=== PATIENT | female | born 1960 | race Caucasian/White ===

== ENCOUNTER 2020-07-09 08:42 | Outpatient (REF) | payer OTHER, SELFPAY ==
[2020-07-09 09:25] LABS: MANUAL DIFF FLAG NO
[2020-07-09 09:33] LABS: Basophils Percent Auto 0.5 % (0-2); Eosinophils Absolute Auto 0.1 X10*3/uL (0.0-0.4); Eosinophils Percent Auto 0.9 % (0-4); Hematocrit 39.3 % (37-47); Imm Gran Abs Auto 0.03 X10*3/uL (0.00-0.03); Imm Gran Pct Auto 0.4 % (0.0-0.4); Lymphocytes Absolute Auto 1.4 X10*3/uL (1.2-4.9); Lymphocytes Percent Auto 15.8 % (20-40); Mean Corpuscular HGB Conc 33.1 g/dl (31.0-35.0); Mean Corpuscular Hemoglobin 30.2 pg (27.0-33.0); Mean Corpuscular Volume 91.2 fL (80-98); Mean Platelet Volume 11.5 fL (9.4-12.3); Monocytes Absolute Auto 0.5 X10*3/uL (0.1-1.2); Monocytes Percent Auto 6.3 % (2-11); Neutrophils Absolute Auto 6.5 X10*3/uL (2.0-8.3); Neutrophils Percent Auto 76.1 % (45-73); Platelet Count 247 X10*3/uL (160-400); Red Blood Count 4.31 X10*6/uL (4.20-5.50); Red Cell Distribution Width 12.9 % (11.0-16.0); White Blood Count 8.5 X10*3/uL (4.8-10.8)
[2020-07-09 09:56] LABS: Alanine Aminotransferase 30 U/L (0-31); Albumin Level 4.1 g/dL (3.5-5.0); Alkaline Phosphatase 79 U/L (39-117); Anion Gap 11 (12-20); Aspartate Amino Transferase 21 U/L (5-31); Bilirubin Total 0.9 mg/dL (0.0-1.0); Blood Urea Nitrogen 22 mg/dL (9-16); Calcium 9.1 mg/dL (8.4-10.2); Carbon Dioxide 31 mmol/L (22-29); Chloride 103 mmol/L (96-108); Cholesterol 164 mg/dL; Estimated Glomerular Filt Rate > 60; Glucose Fasting 89 mg/dL (60-99); HDL Cholesterol 53 mg/dL; LDL Cholesterol Calculated 93 mg/dl; Sodium 141 mmol/L (135-145); Triglycerides 90 mg/dL
[2020-07-09 10:19] LABS: Thyroid Stimulating Hormone 8.83 uIU/mL (0.32-4.0)
== END 2020-07-09 08:43 | disposition home or self-care (01) ==
LOC: HO.LAB 08:42
PROVIDERS: PCP Internal Medicine; Visit Provider Internal Medicine
DX: E03.8 Other specified hypothyroidism (principal); L23.0 Allergic contact dermatitis due to metals
CPT/HCPCS: 36415; 80053; 80061; 84443; 85025

== ENCOUNTER 2020-08-03 13:13 | Outpatient (REF) | payer OTHER, SELFPAY ==
--- NOTE | ~2020-08-03 | MM_ITS ---
EXAMINATION: MM SCREENING DIGITAL BREAST TOMOSYNTHESIS, BILATERAL CLINICAL INFORMATION: Screening. Asymptomatic. The lifetime risk of breast cancer based on the Tyrer-Cuzick Model is 4.1%. COMPARISON: Mammography: December 19, 2018 and studies dating back to September 03, 2009 TECHNIQUE: Digital breast tomosynthesis is performed in both the craniocaudal and mediolateral oblique views along with computer-aided detection (CAD). Synthesized 2D images are generated from the tomosynthesis. FINDINGS: There are scattered areas of fibroglandular density (ACR BI-RADS breast composition Category b). There are no significant masses, abnormal calcifications, or other abnormalities. MM/MM tomosynthesis screening BI IMPRESSION: There are no significant changes from prior study. ASSESSMENT: BI-RADS 1: Negative RECOMMENDATION: Routine annual mammography screening. This patient's information was entered into a reminder system with a target due date for their next mammogram.
== END 2020-08-03 13:14 | disposition home or self-care (01) ==
LOC: HO.MAMMO 13:13
PROVIDERS: Visit Provider Internal Medicine
DX: Z12.31 Encounter for screening mammogram for malignant neoplasm of breast (principal)
CPT/HCPCS: 77063; 77067

== ENCOUNTER 2020-10-01 08:50 | Outpatient (REF) | payer OTHER, SELFPAY ==
[2020-10-01 10:07] LABS: Thyroid Stimulating Hormone 7.32 uIU/mL (0.32-4.0)
== END 2020-10-01 08:51 | disposition home or self-care (01) ==
LOC: HO.LAB 08:50
PROVIDERS: PCP Internal Medicine; Visit Provider Internal Medicine
DX: Z00.00 Encounter for general adult medical examination without abnormal findings (principal); E78.00 Pure hypercholesterolemia, unspecified; E89.0 Postprocedural hypothyroidism; G47.33 Obstructive sleep apnea (adult) (pediatric)
CPT/HCPCS: 36415; 84443

== ENCOUNTER 2021-02-10 12:35 | Outpatient (REF) | payer OTHER, SELFPAY ==
[2021-02-10 14:11] LABS: Thyroid Stimulating Hormone 1.49 uIU/mL (0.32-4.0)
== END 2021-02-10 12:36 | disposition home or self-care (01) ==
LOC: HO.LAB 12:35
PROVIDERS: PCP Internal Medicine; Visit Provider Internal Medicine
DX: E89.0 Postprocedural hypothyroidism (principal); G47.33 Obstructive sleep apnea (adult) (pediatric)
CPT/HCPCS: 36415; 84443

== ENCOUNTER 2021-07-17 08:37 | Outpatient (REF) | payer OTHER, SELFPAY ==
[2021-07-17 09:02] LABS: MANUAL DIFF FLAG NO
[2021-07-17 09:26] LABS: Basophils Percent Auto 0.4 % (0-2); Eosinophils Absolute Auto 0.1 X10*3/uL (0.0-0.4); Eosinophils Percent Auto 2.4 % (0-4); Hematocrit 37.2 % (37.0-47.0); Imm Gran Abs Auto 0.01 X10*3/uL (0.00-0.03); Imm Gran Pct Auto 0.2 % (0.0-0.4); Lymphocytes Absolute Auto 1.6 X10*3/uL (1.2-4.9); Lymphocytes Percent Auto 30.4 % (20-40); Mean Corpuscular HGB Conc 32.3 g/dl (31.0-35.0); Mean Corpuscular Hemoglobin 29.3 pg (27.0-33.0); Mean Corpuscular Volume 90.7 fL (80.0-98.0); Mean Platelet Volume 11.1 fL (9.4-12.3); Monocytes Absolute Auto 0.5 X10*3/uL (0.1-1.2); Neutrophils Absolute Auto 2.9 x10*3/uL (2.0-8.3); Neutrophils Percent Auto 57.6 % (45-73); Platelet Count 240 X10*3/uL (160-400); Red Cell Distribution Width 12.9 % (11.0-16.0); White Blood Count 5.1 X10*3/uL (4.8-10.8)
[2021-07-17 09:49] LABS: Alanine Aminotransferase 17 U/L (0-31); Albumin Level 3.7 g/dL (3.5-5.0); Alkaline Phosphatase 71 U/L (39-117); Anion Gap 10 (12-20); Aspartate Amino Transferase 15 U/L (5-31); Bilirubin Total 0.3 mg/dL (0.0-1.0); Blood Urea Nitrogen 18 mg/dL (9-16); Calcium 9.1 mg/dL (8.4-10.2); Carbon Dioxide 29 mmol/L (22-29); Chloride 108 mmol/L (96-108); Cholesterol 170 mg/dL; Estimated Glomerular Filt Rate > 60; Glucose Random 99 mg/dL (60-115); HDL Cholesterol 47 mg/dL; LDL Cholesterol Calculated 102 mg/dl; Potassium 4.4 mmol/L (3.3-5.1); Sodium 143 mmol/L (135-145); Total Protein 6.5 g/dL (6.5-8.0); Triglycerides 108 mg/dL
[2021-07-17 10:11] LABS: Thyroid Stimulating Hormone 1.04 uIU/mL (0.32-4.0)
== END 2021-07-17 08:38 | disposition home or self-care (01) ==
LOC: HO.LAB 08:37
PROVIDERS: PCP Internal Medicine; Visit Provider Internal Medicine
DX: E78.00 Pure hypercholesterolemia, unspecified (principal); E89.0 Postprocedural hypothyroidism; G47.33 Obstructive sleep apnea (adult) (pediatric); M77.12 Lateral epicondylitis, left elbow; M77.02 Medial epicondylitis, left elbow; R35.1 Nocturia; R53.83 Other fatigue
CPT/HCPCS: 36415; 80053; 80061; 84443; 85025

== ENCOUNTER 2021-09-09 09:30 | Outpatient (REF) | payer OTHER, SELFPAY ==
--- NOTE | ~2021-09-09 | MM_ITS ---
EXAMINATION: MM SCREENING DIGITAL BREAST TOMOSYNTHESIS, BILATERAL CLINICAL INFORMATION: Screening. Asymptomatic. The lifetime risk of breast cancer based on the Tyrer-Cuzick Model is 4%. COMPARISON: Mammography: 08/03/2020, 12/19/2018, 09/07/2017 TECHNIQUE: Digital breast tomosynthesis is performed in both the craniocaudal and mediolateral oblique views along with computer-aided detection (CAD). Synthesized 2D images are generated from the tomosynthesis. FINDINGS: There are scattered areas of fibroglandular density (ACR BI-RADS breast composition Category b). Breast tissue composition borders on heterogeneously dense. There is a biopsy clip marker again noted central 12:00 mid right breast. There is no interval mass or architectural abnormality or abnormal calcifications. The axilla and skin contours are unremarkable. MM/MM tomosynthesis screening BI IMPRESSION: No mammographic evidence of malignancy. ASSESSMENT: BI-RADS 2: Benign RECOMMENDATION: Routine annual mammography screening. This patient's information was entered into a reminder system with a target due date for their next mammogram.
== END 2021-09-09 09:31 | disposition home or self-care (01) ==
LOC: HO.MAMMO 09:30
PROVIDERS: Visit Provider Internal Medicine
DX: Z12.31 Encounter for screening mammogram for malignant neoplasm of breast (principal)
CPT/HCPCS: 77063; 77067

== ENCOUNTER 2022-01-08 07:40 | Outpatient (REF) | payer OTHER, SELFPAY ==
[2022-01-08 09:06] LABS: Alanine Aminotransferase 21 U/L (0-31); Alkaline Phosphatase 71 U/L (39-117); Anion Gap 13 (12-20); Aspartate Amino Transferase 14 U/L (5-31); Bilirubin Total 0.5 mg/dL (0.0-1.0); Blood Urea Nitrogen 21 mg/dL (9-16); Carbon Dioxide 27 mmol/L (22-29); Chloride 104 mmol/L (96-108); Estimated Glomerular Filt Rate > 60; Glucose Random 94 mg/dL (60-115); Potassium 4.3 mmol/L (3.3-5.1); Sodium 140 mmol/L (135-145)
[2022-01-08 09:27] LABS: Thyroid Stimulating Hormone 1.72 uIU/mL (0.32-4.0)
== END 2022-01-08 07:41 | disposition home or self-care (01) ==
LOC: HO.LAB 07:40
PROVIDERS: PCP Internal Medicine; Visit Provider Internal Medicine
DX: Z00.00 Encounter for general adult medical examination without abnormal findings (principal); E78.00 Pure hypercholesterolemia, unspecified; E89.0 Postprocedural hypothyroidism; I10 Essential (primary) hypertension
CPT/HCPCS: 36415; 80053; 84443

== ENCOUNTER 2022-09-11 09:37 | Outpatient (REF) | payer OTHER, SELFPAY ==
[2022-09-11 10:22] LABS: MANUAL DIFF FLAG NO
[2022-09-11 10:30] LABS: Basophils Absolute Auto 0.1 X10*3/uL (0.0-0.2); Basophils Percent Auto 0.5 % (0-2); Eosinophils Absolute Auto 0.1 X10*3/uL (0.0-0.4); Eosinophils Percent Auto 0.7 % (0-4); Hematocrit 41.6 % (37.0-47.0); Hemoglobin 13.7 g/dl (12.0-16.0); Imm Gran Abs Auto 0.18 X10*3/uL (0.00-0.03); Imm Gran Pct Auto 1.4 % (0.0-0.4); Lymphocytes Absolute Auto 4.6 X10*3/uL (1.2-4.9); Lymphocytes Percent Auto 34.7 % (20-40); Mean Corpuscular HGB Conc 32.9 g/dl (31.0-35.0); Mean Corpuscular Hemoglobin 29.2 pg (27.0-33.0); Mean Corpuscular Volume 88.7 fL (80.0-98.0); Mean Platelet Volume 11.3 fL (9.4-12.3); Monocytes Absolute Auto 0.9 X10*3/uL (0.1-1.2); Monocytes Percent Auto 6.6 % (2-11); Neutrophils Absolute Auto 7.5 x10*3/uL (2.0-8.3); Neutrophils Percent Auto 56.1 % (45-73); Platelet Count 294 X10*3/uL (160-400); Red Blood Count 4.69 X10*6/uL (4.20-5.50); Red Cell Distribution Width 13.4 % (11.0-16.0); White Blood Count 13.3 X10*3/uL (4.8-10.8)
[2022-09-11 11:13] LABS: Alanine Aminotransferase 29 U/L (0-31); Albumin Level 4.1 g/dL (3.5-5.0); Alkaline Phosphatase 68 U/L (39-117); Anion Gap 12 (12-20); Aspartate Amino Transferase 16 U/L (5-31); Bilirubin Total 0.6 mg/dL (0.0-1.0); Blood Urea Nitrogen 25 mg/dL (9-16); Calcium 9.3 mg/dL (8.4-10.2); Carbon Dioxide 30 mmol/L (22-29); Chloride 105 mmol/L (96-108); Cholesterol 255 mg/dL; Estimated Glomerular Filt Rate > 60; Glucose Fasting 82 mg/dL (60-99); HDL Cholesterol 56 mg/dL; LDL Cholesterol Calculated 175 mg/dl; Potassium 3.6 mmol/L (3.3-5.1); Sodium 143 mmol/L (135-145); Total Protein 6.8 g/dL (6.5-8.0); Triglycerides 120 mg/dL
[2022-09-11 11:30] LABS: Thyroid Stimulating Hormone 7.59 uIU/mL (0.32-4.0)
== END 2022-09-11 09:38 | disposition home or self-care (01) ==
LOC: HO.10HDL 09:37
PROVIDERS: Visit Provider Internal Medicine
DX: E78.00 Pure hypercholesterolemia, unspecified (principal); E89.0 Postprocedural hypothyroidism; J02.9 Acute pharyngitis, unspecified; J30.89 Other allergic rhinitis
CPT/HCPCS: 36415; 80053; 80061; 84443; 85025

== ENCOUNTER 2022-10-20 10:11 | Outpatient (REF) | payer OTHER, SELFPAY ==
--- NOTE | ~2022-10-20 | MM_ITS ---
EXAMINATION: MM SCREENING DIGITAL BREAST TOMOSYNTHESIS, BILATERAL CLINICAL INFORMATION: Screening. Asymptomatic. Right breast biopsy 2008 (fibrosis, apocrine microcysts, florid sclerosing adenosis with numerous microcalcifications). The lifetime risk of breast cancer based on the Tyrer-Cuzick Model is 4%. COMPARISON: Mammography: 09/09/2021, 08/03/2020, 12/19/2018, 09/07/2017, 08/11/2016, 06/25/2015 TECHNIQUE: Digital breast tomosynthesis is performed in both the craniocaudal and mediolateral oblique views along with computer-aided detection (CAD). Synthesized 2D images are generated from the tomosynthesis. FINDINGS: There are scattered areas of fibroglandular density (ACR BI-RADS breast composition Category b). Breast tissue composition borders on heterogeneously dense. Right breast parenchymal pattern is similar to prior exams. There is no developing density or architectural abnormality. Again, there is a biopsy clip marker mid 12:00 position. Scattered calcifications are again seen. No suspicious calcifications in either breast. The bilateral axilla are unremarkable. Left CC view has asymmetric density just medial to midline 3 cm from nipple, possibly incompletely compressed glandular tissue and/or summation artifact. Patient will be recalled for additional imaging to further characterize. MM/MM tomosynthesis screening BI IMPRESSION: Left: -Asymmetric density 3 cm from nipple on CC view just medial to midline, possibly incompletely compressed glandular tissue and/or summation artifact. Right: -No significant changes from prior exams. ASSESSMENT: BI-RADS 0: Incomplete - Need Additional Imaging Evaluation RECOMMENDATION: 1. Additional views left breast (spot CC nipple in profile; ML). 2. Targeted ultrasound if warranted after review of the additional views. 3. Radiology department staff will contact the patient for additional imaging. This patient's information was entered into a reminder system with a target due date for their next mammogram.
== END 2022-10-20 10:12 | disposition home or self-care (01) ==
LOC: HO.MAMMO 10:11
PROVIDERS: PCP Internal Medicine; Visit Provider Internal Medicine
DX: Z12.31 Encounter for screening mammogram for malignant neoplasm of breast (principal)
CPT/HCPCS: 77063; 77067

== ENCOUNTER 2022-11-06 10:30 | Outpatient (REF) | payer OTHER, SELFPAY ==
--- NOTE | ~2022-11-06 | MM_ITS ---
EXAMINATION: MM DIAGNOSTIC DIGITAL BREAST TOMOSYNTHESIS, LEFT CLINICAL INFORMATION: Recall from screening for question of asymmetric density just medial to midline anterior left breast on CC view. Suspect summation artifact or incompletely compressed glandular tissue. COMPARISON: Mammography: 10/20/2022, 09/09/2021, 08/03/2020, 12/19/2018 TECHNIQUE: Digital breast tomosynthesis is performed. 2D images are generated from the tomosynthesis. The following views are obtained: Spot CC, spot MLO, rolled CC x2, standard ML. FINDINGS: There are scattered areas of fibroglandular density (ACR BI-RADS breast composition Category b). Breast tissue composition borders on heterogeneously dense. The additional views show no architectural abnormality, mass, or developing density. There are no significant changes from prior exams. Results are discussed with the patient at time of visit. MM/MM tomosynthesis added views L IMPRESSION: No mammographic evidence of malignancy. ASSESSMENT: BI-RADS 1: Negative RECOMMENDATION: Routine annual mammography screening. This patient's information was entered into a reminder system with a target due date for their next mammogram.
== END 2022-11-06 10:31 | disposition home or self-care (01) ==
LOC: HO.MAMMO 10:30
PROVIDERS: PCP Internal Medicine; Visit Provider Internal Medicine
DX: R92.2 Inconclusive mammogram (principal)
CPT/HCPCS: 77061; 77065

== ENCOUNTER 2022-12-06 12:21 | Outpatient (REF) | payer OTHER, SELFPAY ==
--- NOTE | ~2022-12-06 | XR_ITS ---
EXAMINATION: XR ABDOMEN COMPLETE CLINICAL INDICATION: Abdominal pain with chest radiograph. COMPARISON: None available. TECHNIQUE: Supine and upright views of the abdomen were performed along with a single PA chest radiograph of the abdomen. FINDINGS: The chest radiograph is normal. There is no free intraperitoneal air. The abdominal bowel gas pattern is normal with no evidence of ileus or obstruction. No unusual soft tissue calcifications are noted. Surgical clips are present in the left lower quadrant. The bones are unremarkable. XR/XR acute abdomen series IMPRESSION: Unremarkable examination.
[2022-12-06 12:49] LABS: MANUAL DIFF FLAG NO
[2022-12-06 13:42] LABS: Basophils Absolute Auto 0.1 X10*3/uL (0.0-0.2); Basophils Percent Auto 0.8 % (0-2); Eosinophils Absolute Auto 0.1 X10*3/uL (0.0-0.4); Eosinophils Percent Auto 2.3 % (0-4); Hematocrit 38.1 % (37.0-47.0); Hemoglobin 12.6 g/dl (12.0-16.0); Imm Gran Abs Auto 0.02 X10*3/uL (0.00-0.03); Imm Gran Pct Auto 0.3 % (0.0-0.4); Lymphocytes Absolute Auto 1.8 X10*3/uL (1.2-4.9); Lymphocytes Percent Auto 29.5 % (20-40); Mean Corpuscular HGB Conc 33.1 g/dl (31.0-35.0); Mean Corpuscular Hemoglobin 29.9 pg (27.0-33.0); Mean Corpuscular Volume 90.3 fL (80.0-98.0); Mean Platelet Volume 12.1 fL (9.4-12.3); Monocytes Absolute Auto 0.5 X10*3/uL (0.1-1.2); Neutrophils Absolute Auto 3.5 x10*3/uL (2.0-8.3); Neutrophils Percent Auto 59.1 % (45-73); Platelet Count 260 X10*3/uL (160-400); Red Blood Count 4.22 X10*6/uL (4.20-5.50); Red Cell Distribution Width 12.9 % (11.0-16.0)
[2022-12-06 14:15] LABS: Alanine Aminotransferase 26 U/L (0-31); Albumin Level 3.7 g/dL (3.5-5.0); Alkaline Phosphatase 79 U/L (39-117); Amylase 73 U/L (28-100); Aspartate Amino Transferase 24 U/L (5-31); Bilirubin Direct 0.1 mg/dL (0.0-0.5); Bilirubin Total 0.5 mg/dL (0.0-1.0); C Reactive Protein 0.37 mg/dL (< or = 0.50); Lipase 14 U/L (8-78)
[2022-12-06 14:43] LABS: Erythrocyte Sedimentation Rate 34 MM/HR (0-20)
== END 2022-12-06 12:22 | disposition home or self-care (01) ==
LOC: HO.LAB 12:21
PROVIDERS: PCP Internal Medicine; Visit Provider Internal Medicine
DX: R10.84 Generalized abdominal pain (principal); R19.7 Diarrhea, unspecified; R11.10 Vomiting, unspecified
CPT/HCPCS: 36415; 74022; 80076; 82150; 83690; 85025; 85652; 86140

== ENCOUNTER 2022-12-10 08:44 | Outpatient (REF) | payer OTHER, SELFPAY ==
[2022-12-10 15:53] LABS: Leukocytes Stool Qualitative NEGATIVE (NEGATIVE)
[2022-12-11 12:19] LABS: Adenovirus F 40/41 Not Detected (Not Detect.); Astrovirus Not Detected (Not Detect.); Campylobacter Not Detected (Not Detect.); Cryptosporidium Not Detected (Not Detect.); Cyclospora cayetanensis Not Detected (Not Detect.); E. coli EAEC Not Detected (Not Detect.); E. coli EPEC Not Detected (Not Detect.); E. coli ETEC Not Detected (Not Detect.); E. coli STEC Not Detected (Not Detect.); Entamoeba histolytica Not Detected (Not Detect.); Giardia lamblia Not Detected (Not Detect.); Norovirus GI/GII Not Detected (Not Detect.); Plesiomonas shigelloides Not Detected (Not Detect.); Rotavirus A Not Detected (Not Detect.); Salmonella Not Detected (Not Detect.); Sapovirus Not Detected (Not Detect.); Shigella sp./EIEC Not Detected (Not Detect.); Vibrio Not Detected (Not Detect.); Vibrio Cholerae Not Detected (Not Detect.); Yersinia enterocolitica Not Detected (Not Detect.)
== END 2022-12-10 08:45 | disposition home or self-care (01) ==
LOC: HO.CHCLNP 08:44
PROVIDERS: Visit Provider Internal Medicine
DX: R10.84 Generalized abdominal pain (principal); R19.7 Diarrhea, unspecified
CPT/HCPCS: 87493; 87507; 89055

== ENCOUNTER 2022-12-12 09:16 | Outpatient (REF) | payer OTHER, SELFPAY ==
[2022-12-12 15:43] LABS: Cholesterol 147 mg/dL; HDL Cholesterol 47 mg/dL; LDL Cholesterol Calculated 82 mg/dl; Triglycerides 90 mg/dL
[2022-12-12 15:49] LABS: Thyroid Stimulating Hormone 1.95 uIU/mL (0.32-4.0)
== END 2022-12-12 09:17 | disposition home or self-care (01) ==
LOC: HO.CHCLDS 09:16
PROVIDERS: Visit Provider Internal Medicine
DX: Z00.01 Encounter for general adult medical examination with abnormal findings (principal); E78.00 Pure hypercholesterolemia, unspecified; E89.0 Postprocedural hypothyroidism; J45.909 Unspecified asthma, uncomplicated
CPT/HCPCS: 36415; 80061; 84443

== ENCOUNTER 2023-06-18 09:22 | Outpatient (REF) | payer OTHER, SELFPAY | END 2023-06-18 09:23 | disposition home or self-care (01) | LOC: HO.CHCLDS 09:22 | PROVIDERS: Visit Provider Internal Medicine | DX: E78.00 Pure hypercholesterolemia, unspecified (principal); R11.0 Nausea; E89.0 Postprocedural hypothyroidism | CPT/HCPCS: 36415; 84443 ==

== ENCOUNTER 2023-11-16 09:46 | Outpatient (REF) | payer OTHER, SELFPAY ==
--- NOTE | ~2023-11-16 | MM_ITS ---
EXAMINATION: MM SCREENING DIGITAL BREAST TOMOSYNTHESIS, BILATERAL CLINICAL INFORMATION: Screening. Asymptomatic. COMPARISON: Mammography: This study is compared with prior exams dating back to 2020. TECHNIQUE: Digital breast tomosynthesis is performed in both the craniocaudal and mediolateral oblique views along with computer-aided detection (CAD). Synthesized 2D images are generated from the tomosynthesis. FINDINGS: The breasts are heterogeneously dense, which may obscure small masses (ACR BI-RADS breast composition Category c). There are no significant masses, abnormal calcifications, or other abnormalities. There is a biopsy tissue marker in the right breast. MM/MM tomosynthesis screening BI IMPRESSION: No mammographic evidence of malignancy. ASSESSMENT: BI-RADS BI-RADS 2 - Benign Findings RECOMMENDATION: Routine annual mammography screening. 1 year F/U This examination should not preclude the clinical evaluation of a suspicious palpable abnormality. This patient's information was entered into a reminder system with a target due date for their next mammogram.
== END 2023-11-16 09:47 | disposition home or self-care (01) ==
LOC: HO.MAMMO 09:46
PROVIDERS: PCP Internal Medicine; Visit Provider Internal Medicine
DX: Z12.31 Encounter for screening mammogram for malignant neoplasm of breast (principal)
CPT/HCPCS: 77063; 77067

== ENCOUNTER → 2023-11-16 10:30 | Outpatient (BNV) | payer OTHER, SELFPAY | PROVIDERS: PCP Internal Medicine; Visit Provider Radiology Diagnostic Radiology | DX: Z12.31 Encounter for screening mammogram for malignant neoplasm of breast (principal) | CPT/HCPCS: 77063; 77067 ==

== ENCOUNTER 2023-12-27 08:08 | Outpatient (REF) | payer OTHER, SELFPAY ==
[2023-12-27 13:53] LABS: MANUAL DIFF FLAG NO
[2023-12-27 14:07] LABS: Basophils Percent Auto 0.5 % (0-2); Eosinophils Absolute Auto 0.1 X10*3/uL (0.0-0.4); Eosinophils Percent Auto 1.2 % (0-4); Hematocrit 39.4 % (37.0-47.0); Hemoglobin 13.1 g/dl (12.0-16.0); Imm Gran Abs Auto 0.03 X10*3/uL (0.00-0.03); Imm Gran Pct Auto 0.5 % (0.0-0.4); Mean Corpuscular HGB Conc 33.2 g/dl (31.0-35.0); Mean Corpuscular Hemoglobin 29.8 pg (27.0-33.0); Mean Corpuscular Volume 89.5 fL (80.0-98.0); Mean Platelet Volume 11.7 fL (9.4-12.3); Monocytes Absolute Auto 0.5 X10*3/uL (0.1-1.2); Neutrophils Percent Auto 59.8 % (45-73); Platelet Count 244 X10*3/uL (160-400); Red Cell Distribution Width 13.3 % (11.0-16.0); White Blood Count 6.6 X10*3/uL (4.8-10.8)
[2023-12-27 14:38] LABS: Alanine Aminotransferase 17 U/L (0-31); Alkaline Phosphatase 64 U/L (39-117); Anion Gap 11 (12-20); Aspartate Amino Transferase 17 U/L (5-31); Bilirubin Total 0.3 mg/dL (0.0-1.0); Blood Urea Nitrogen 22 mg/dL (9-16); Calcium 9.7 mg/dL (8.4-10.2); Carbon Dioxide 29 mmol/L (22-29); Chloride 106 mmol/L (96-108); Cholesterol 138 mg/dL (<200); Estimated Glomerular Filt Rate > 60; Glucose Fasting 90 mg/dL (60-99); HDL Cholesterol 57 mg/dL (>40); LDL Cholesterol Calculated 62 mg/dL (<100); Sodium 142 mmol/L (135-145); Thyroid Stimulating Hormone 1.37 uIU/mL (0.32-4.0); Total Protein 7.3 g/dL (6.5-8.0); Triglycerides 95 mg/dL (<150)
== END 2023-12-27 08:09 | disposition home or self-care (01) ==
LOC: HO.CHCLDS 08:08
PROVIDERS: Visit Provider Internal Medicine
DX: J01.90 Acute sinusitis, unspecified (principal); I10 Essential (primary) hypertension; E89.0 Postprocedural hypothyroidism; E78.00 Pure hypercholesterolemia, unspecified
CPT/HCPCS: 36415; 80053; 80061; 84443; 85025

== ENCOUNTER 2024-07-27 08:12 | Outpatient (REF) | payer OTHER, SELFPAY ==
--- OUTSIDE RECORDS SUMMARY | 2024-07-27 08:25 | XMS_ITS | Clinical Summary ---
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 Role Phone Unavailable Primary Care Provider Unavailabl e Immunizations Name Administration Dates Next Due Moderna Covid-19 Vaccine 6+ Bivalent 06/14/2022 Pneumococcal Conjugate PCV 20 01/20/2024 RSV Bivalent 01/20/2024 Zoster, Recombinant 06/30/2024,01/20/2024 Social History Tobacco Use Types Packs/Day Years Used Date Smoking Tobacco: Never Assessed Comments Unknown Sex and Gender Information Value Date Recorded Sex Assigned at Female 03/26/2022 10:28 AM EDT Legal Sex Female 10:28 AM EDT Gender Identity Female 03/26/2022 10:28 AM EDT Sexual Orientation Don't know 03/26/2022 10 :28 AM EDT Plan of Treatment Health Maintenance Due Date Last Done Comments CT Colonography 1962 Colonoscopy 1962 Colorectal Cancer Screening 1962 Depression Screening 1962 FIT DNA/Cologuard 1962 FIT 1962 FOBT 1962 Sigmoidoscopy 1962 Alcohol/Substance Use Screening 1974 Tobacco Screening 1974 Pap Smear 1983 Cervical Cancer Screening 1992 HPV/Cotest 1992 Mammogram 2002 COVID-19 Vaccine ( season) 2024 06/14/2022, 04/28/2021, 10/04/2020, Additional history exists Influenza Vaccine (#1) 2024 , 03/10/2021, 02/15/2021, Additional history exists DTaP/Tdap/Td Vaccines (2 - Td or Tdap) 04/06/2032 04/06/2022 Pneumococcal Vaccine: 50+ Years Completed 01/20/2024 RSV Patients and Patients Aged 60 years or older Completed 01/20/2024 Zoster Vaccines Completed 06/30/2024, 01/20/2024 HIB Vaccines Aged Out No longer eligi ble based on patient's age to complete this topic HPV Vaccines Aged Out No longer eligi ble based on patient's age to complete this topic Hepatitis A Vaccines Aged Out No long er eligible based on patient's age to complete this topic Hepatitis B Vaccines Aged Out No long er eligible based on patient's age to complete this topic IPV Vaccines Aged Out No longer eligi ble based on patient's age to complete this topic Meningococcal Vaccine Aged Out No onur juanjose eligible based on patient's age to complete this topic RSV under 20 months Aged Out No longe r eligible based on patient's age to complete this topic Rotavirus Vaccines Aged Out No longer eligible based on patient's age to complete this topic
--- OUTSIDE RECORDS SUMMARY | 2024-07-27 08:25 | XMS_ITS | Data Portability ---
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 Exam: Patient HRR 83, no rub, murmur, gallop appreciated. LSCTA bilaterally, no use of accessory muscles. ENT exam wnl with exception of erythemia to nasal turbinates; there is also cobblestoning consistent to patient history of chronic allergies. No oropharyngeal erythema or exudate noted. Uvula is midline, tonsils intact with no inflammation. No lymphadenopathy, no peripheral edema. Abdomen soft, non-tender, + bowel sounds x 4 quadrants. Grossly normal neuro exam. DDx considered, but not limited to: covid likely given direct exposure Fly unlikely, patient is afebrile, non-toxic exam Work up/Results: covid swab obtained and sent to lab. Plan/Discussion: follow up with Covid results when available Patient agrees to continue to quarantine per CDC guidelines and recommendations. Covid handout reviewed with patient. Tylenol for comfort, hydrate with electrolyte solution Discussed BRAT diet discussed s/s to report to PCP vs. acute s/s to report to ED. Patient able to reiterate all discussed. No questions at this time. Proper Personal Protective Equipment (PPE), including gloves, eye protection, N95 mask, gown, and shoe covers were donned and doffed appropriately and all equipment cleaned using approved technique with germicidal disposable wipes prior to and after care of this patient according to [facility]'s infection prevention protocols. In order to obtain further information and compare any laboratory results/values, I have accessed old patient records. This information was pertinent in my medical decision making today. Time On Scene with Patient: 00:33:45 Not available 05/26/2020 12:06:04 Plan of Treatment Reminders Order Date Submit Date Provider Last Modified By Organization Details Last Modified Time Details Appointments None recorded. Lab SARS CoV 2 RNA (COVID-19), QL, newspaper manager-PCR, respiratory specimen 2019 020 HANSEL [facility] (Centralized Electronic Ordering - All Locations), Patient Can Go To The Location Of Their Choice, [id number] 18:19:36 Referral None recorded. Procedures None recorded. Surgeries None recorded. Imaging None recorded. Medication Orders None recorded. Patient TargetsNo targets recorded. Patient Instructions Encounter Date Encounter Id Patient Instructions Last Modified By Organization Details Last Modified Time 05/26/2020 [id number] coronavirus (covid-19): care instructions Not available 05/26/2020 12:06:09 You were tested today for Covid as you were exposed recently and are having symptoms. Please review the Covid information sheet provided this visit. Take Tylenol for discomfort/fever. Increase your fluid intake and stay hydrated, drink electrolyte based fluid like gatorade or diluted juice. for your diarrhea, follow the BRAT diet (bananas, rice, apples, toast). We will contact you as soon as your Covid results are available. Until then, manage your symptoms as instructed and maintain quarantine per guidelines as stated in the Covid information sheet. Thank you for your visit with [facility] today. We cannot always find the exact cause of your symptoms during your initial visit. Please follow up with your primary care provider or specialist as needed to be rechecked or seek medical attention if your symptoms do not go away or get worse. If you develop any new or worsening symptoms and need after hours care, please go to nearest ER and/or call 911. If you have additional concerns or develop a change in your condition between 8am-10pm, please call [facility] at [phone] to help navigate your care. Not available 05/26/2020 11:29:59 Reason for Referral None Reported. Results Created Date Observation Date Name Description Value Unit Range Abnormal Flag Note LastModifiedBy Organization Detail LastModifiedTime 05/26/20 20 05/30/2020 SARS CoV 2 RNA (COVI D-19) , QL, newspaper manager-P CR, respi rator y speci men covid-19, (RT)-PCR (notde ) Not detec alycia 2019- novel Coron aviru s (2018nCoV ) not detec alycia by the qRT-P CR assay . If clini fany suspi cion for COVID -19 is high, ashley nue to maint ain preca ution s and consi mikel repea t testi ng. Resul t repor alycia to [facility]. This test has been autho rized by the FDA under an Emerg ency Use Autho rizat ion (EUA) for use by autho rized labor atori es. Test perfo rmed by Clini fany [facility] at the [facility] and Concepcion schultz, [address] [place] [address] . CLIA ID: [id number] , CAP: [id number]. Medic al Direc tor: Anne Marie Camarillo, PhD FAC (NOTE ) The CRSP SARS- CoV-2 Real- time Rever se Trans cript ase (RT)- PCR Diagn ostic Assay is a real- time RT-PC R test inten ded for the quali tativ e detec tion of nucle ic acid from the SARS- CoV-2 in nasop haryn geal and oroph aryng eal swabs colle cted from indiv idual s who may have contr acted the virus . Testi ng is limit ed to the Clini fany [facility] or[facility] at the [facility] which is certi fied under the Clini fany Labor atory Impro vemen t Amend ments of 1987 (CLIA ), 42 U.S.C . ?263a , to perfo rm high compl exity tests . = Posit oliverio resul ts are indic ative of activ e infec tion with SARS- CoV-2 but do not rule out bacte rial infec tion or co-in fecti on with other virus es. The agent detec alycia may not be the defin ite cause of disea se. In addit ion, nucle ic acid detec tion can persi st follo wing clear ance of activ e viral repli catio n. Labor atori es withi n the Unite d State s and its dane gab s are requi red to repor t all posit oliverio resul ts to the appro priat e publi c healt h autho ritie s. = Negat oliverio resul ts do not precl ude SARS- CoV-2 infec tion and shoul d not be used as the sole basis for patie nt treat ment or other patie nt manag ement decis ions. Negat oliverio resul ts must be combi fina with clini fany obser vatio ns, patie nt histo ry, and epide miolo gical infor matio n. Not Available [facility] (Centralized Electronic Ordering - All Locations) Patient Can Go To The Location Of Their Choice, [id number] 05/30/2020 18:19:36 Result Notes None recorded. Procedures Surgical History Date Name Laterality Status Provider Name and Address Organization Details Recorded Time hysterectomy completed Damari Dubose NP [address] [place], [address], [place] - [facility] 05/26/2020 11:16:11 vaginal delivery of fetus completed Damari Dubose NP [address] [place], [address], [place] [facility] 05/26/2020 11:16:26 Imaging Results None recorded. Procedure Notes None recorded. Medical Equipment None Reported. Allergies No known drug allergies Medications Name Sig Start Date Stop Date Status Note LastModified by Organization Details LastModified Time atorvastati n 80 mg tablet active Not Available Not Available Not Available clobetasol 0.05 % topical cream active Not Available Not Available Not Available levothyroxi ne 88 mcg tablet active Not Available Not Available Not Available levothyroxi ne 125 mcg tablet 05/26 completed Not Available Not Available Not Available omeprazole 20 mg capsule,del ayed release active Not Available Not Available Not Available fluticasone 100 mcg-salmete rol 50 mcg/dose blistr powdr for inhalation Inhale 1 puff twice a day by inhalatio n route. active Not Available Not Available No t Available Magnesium (oxide/AA chelate) active Not Available Not Available Not Available turmeric active Not Available Not Avai lable Not Available Flucelvax Quad (PF) 60 mcg (15 mcg x 4)/0.5 mL IM syringe inject intramusc ularly at the pharmacy active Not Available Not Available No t Available Vitals Date Recorded Oxygen saturation Oxygen saturation in Arterial blood by Pulse oximetry Respiratory rate Heart rate Body temperature Systolic blood pressure Diastolic blood pressure Provider Name and Address Organization Details Last Updated DateTime 0 99 % 99 % 18 /min 83 /min 97.8 [degF] 122 mm[Hg] 74 mm[Hg] Not Available [facility] 0 11:11:20 Social History Question Answer Notes LastModified by Organizat ion Details LastModified Time Tobacco Smoking Status Never Smoker Damari Dubose, [facility] [address], [place], [address], [place] [facility] 05/26/2020 11:15:17 Do You Have An Advance Directive? No Information not available 05/26/2020 What Is Your Code Status? Full Code Information not available 05/26/2020 Within The Past 12 Months, Has It Happened That The Food You Bought Just Didn't Last And You Didn't Have Money To Get More. No Information not available 05/26/2020 Within The Past 12 Months, Have You Worried That Your Food Would Run Out Before You Got Money To Buy More. No Information not available 05/26/2020 Fall Risk: Do You Feel Unsteady When Standing Or Walking? No Information not available 05/26/2020 We Know That How And When People Interact With Friends And Family Can Be Very Different From Person To Person. How Often Do You Have The Opportunity To See Or Talk To People That You Care About And Feel Close To? (Ex: Talking To Friends On The Phone Or Visiting Friends Or Family Or Going To Gnosticist Or Club Meetings) 1 Or 2 Times Per Week Information not available 05/26/2020 Excessive Alcohol Or Drug Use No Information not available 05/26/2020 We Know From Many Of Our Patients That Covering All Of Their Costs Can Be Difficult At Times. This Can Cause Stress And Impact Health. In The Past Year, Have You Been Unable To Get Any Of The Following When It Was Really Needed? No Information not available 05/26/2020 What Is Your Housing Situation Today? I Have Housing Information not available 05/26/2020 Would You Like Help Connecting To Resources? Transportation Information not available 05/26/2020 Sex: Unknown Functional Status None recorded. Mental Status None recorded. Family History Relationship Description Onset Age of this Age Resolved Age Notes LastModified by Organization Details LastModified Time Mother Atrial fibrillation Not available 11:13:57 Mother Asthma Not available 11:14:12 Mother Hypertensive disorder Not available 2019 11:14:21 Mother Hyperlipidem ia Not available 2019 11:14:33 Father Diabetes mellitus Not available 2019 11:14:53 Father Hypothyroidi sm Not available 2019 11:15:03 Father Myocardial infarction Not available 05/26 11:15:10 Medical History Condition Response Diabetes N Coronary Artery Disease N Cancer N Stroke N Depression N COPD N Asthma N High Cholesterol Y Pulmonary Embolism N Hypertension N Kidney Disease N Gynecological HistoryNo gynecological history recorded. Obstetrics History GPAL:G 0 P 0 0 0 0 Past Encounters Encounter ID Performer Location Encounter Start Date Encounter Closed Date Diagnosis/Indication Diagnosis SNOMED-CT Code Diagnosis ICD10 Code Diagnosis Note [id number] Damari Dubose NP [facility] - [address] [id number] 05/26/2020 11:07:30 05/30/2020 17:00:03 Exposure to communicable disease 066837898 Z20.828 Health Concerns Section Related Observation LastModified by Organization Detai ls LastModified Time None Recorded Concern Status LastModified by Organization Details LastModified Time None Recorded Advance Directives Directive N: Payers Encounter Date Sequence Insurance Name Policy Number Policy Rosado Covered Member ID Rosado Member ID Guarantor Name 05/26/2020 1 [facility] [id number] 1 Halie Bernstein [id number] [facility] Notes Date Note Type Note Provider Name and Address Organization Details Recorded Time 05/26/2020 text/html Patient is a 60 year old female who is alert. She is new to and new to this provider. She was exposed this past Saturday to Covid through a relative who was visiting. Her chief complaint is covid symptoms to include loss of appetite, 3 episodes of diarrhea since Saturday night. There are no alleviating factors and no exacerbating factors. Patient medical history is significant for Hyperlipidemia and sleep apnea. Damari Dubose, VERENA [address] [place] [address], [place], [address], [place] [facility] 05/26/2020 12:06:23 OBGyn Episode No OBEpisode recorded.
[2024-07-27 14:57] LABS: Thyroid Stimulating Hormone 1.28 uIU/mL (0.32-4.0)
== END 2024-07-27 08:13 | disposition home or self-care (01) ==
LOC: HO.CHCLDS 08:12
PROVIDERS: Visit Provider Internal Medicine
DX: Z00.01 Encounter for general adult medical examination with abnormal findings (principal); E78.00 Pure hypercholesterolemia, unspecified; E89.0 Postprocedural hypothyroidism; M70.61 Trochanteric bursitis, right hip
CPT/HCPCS: 36415; 84443

== ENCOUNTER 2024-11-21 09:57 | Outpatient (REF) | payer OTHER, SELFPAY | END 2024-11-21 09:58 | disposition home or self-care (01) | LOC: HO.MAMMO 09:57 | PROVIDERS: Visit Provider Internal Medicine | DX: Z12.31 Encounter for screening mammogram for malignant neoplasm of breast (principal) | CPT/HCPCS: 77063; 77067 ==

== ENCOUNTER → 2024-11-21 10:30 | Outpatient (BNV) | payer OTHER, SELFPAY | PROVIDERS: Visit Provider Internal Medicine | DX: Z12.31 Encounter for screening mammogram for malignant neoplasm of breast (principal) | CPT/HCPCS: 77063; 77067 ==

== ENCOUNTER 2025-02-22 08:15 | Outpatient (REF) | payer OTHER, SELFPAY ==
--- OUTSIDE RECORDS SUMMARY | 2025-02-22 08:23 | XMS_ITS | Patient Health Record ---
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 Name Role Phone Bindu Womack Primary Care Provider Riky Barker Unavailable [phone] Reason For Referral No Information Medications Medication SIG (Take, Route, Frequency, Duration) Notes Start Date End Date Status Omeprazole 20 MG TAKE 1 CAPSULE BY MO UTH EVERY DAY Oral for 90 Active Zinc Citrate-Phytase 30 mg 1 capsule Ora lly twice a day Active Levothyroxine Sodium 88 MCG TAKE 1 TABLE T BY MOUTH EVERY DAY Oral for 90 Active Atorvastatin Calcium 80 MG TAKE 1 TABLET BY MOUTH EVERYDAY AT BEDTIME Oral for 90 Active Magnesium 250 MG 1 tablet with a meal Orally Once a day Active Vitamin D 125 MCG (5000 UT) 1 tablet Ora lly Once a day Active Ascorbic Acid 90 1 tablet Orally Once a day Active Ondansetron 4 MG 1 tablet on the tong ue and allow to dissolve Orally Every 4-6 hours as needed for nausea for 30 day(s) 12/23/2022 Active Dicyclomine HCl 10 MG 1 or 2 capsules Or ally Every 6 hours as needed for abdominal discomfort or cramps. You can take this 30-60 minutes before a meal to see if that will prevent the symptoms from occurring for 30 day(s) 12/23/2022 Active Hair Vitamins viviscal as directed Orally Active Immunizations Vaccine Route Administration Date Status Comme nts Influenza Unknown 12/25/2017 Administered Problems Problem Type SNOMED Code ICD Code Onset Dates Problem Status W/U Status Risk Notes Problem 093980958 Encounter for screening for malignant neoplasm of colon (Z12.11) Active confirmed Problem 616508546 History of adenomatous polyp of colon (Z86.010) Active confirmed Problem [id number] Preprocedural examination (Z01.818) Active confirmed Problem 004147904 Gastroesophageal reflux disease, esophagitis presence not specified (K21.9) Active confirmed Problem 920343322 Abdominal pain, generalized (R10.84) Active confirmed Problem 61110833 Diarrhea, unspecified type (R19.7) Active confirmed Problem 21575804 Diarrhea of presumed infectious origin (R19.7) Active confirmed Problem Generalized abdominal pain (067416032) Generalized abdominal discomfort (R10.84) Active confirmed Problem Generalized abdominal pain (274329942) Generalized abdominal cramping (R10.84) Active confirmed Problem 704763165 Vomiting, unspecified vomiting type, unspecified whether nausea present (R11.10) Active confirmed Plan Of Treatment Pending Test Test Name Order Date LIVER PROFILE 11/28/2022 CRP 11/28/2022 CBC w DIFF 11/28/2022 SED RATE (ESR) 11/28/2022 XR ABD UPRIGHT AND CHEST 11/28/2022 STOOL WBC 11/28/2022 C DIFFICILE RFLX PCR 11/28/2022 Amylase 11/28/2022 Lipase 11/28/2022 XR KUB 11/28/2022 GI PANEL 11/28/2022 Future Test Test Name Order Date COLONOSCOPY 02/20/2013 COLONOSCOPY 08/01/2018 UPPER GI ENDOSCOPY 02/04/2020 Insurance Providers Payer Name Payer Address Payer Phone Subscriber Number Group Number Insured Name Patient Relationship to Insured Coverage Start Date Coverage End Date [facility] [address] [place] [phone] [id number] MAT BOOTH Self - patient is the insured Medical (General) History Medical History History ICD Code Denies ME,DM,CVA,Lung disease,renal dise ase Hypothyroidism Hyperlipidemia Colonoscopy 03/2013-1 small tubular adenoma removed; colonoscopy 01/2019 with a small tubular adenoma removed Sleep apnea-uses CPAP Seasonal allergies COVID 07/2019-not in hospital Surgical History Surgery Date(Month/Year) BTL MINESH
--- OUTSIDE RECORDS SUMMARY | 2025-02-22 08:23 | XMS_ITS | Clinical Summary ---
Author Organization [employer] Address 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 Name Role Phone Unavailable Primary Care Provider Unavailabl e Immunizations Immunization Administration Dates Next Due Moderna Covid-19 Vaccine [...] 1962 FIT 1962 FOBT 1962 Sigmoidoscopy 1962 Disability Screening 1962 Alcohol/Substance Use Screening 1974 Tobacco Screening 1974 Pap Smear 1983 Cervical Cancer Screening 1992 HPV/Cotest 1992 Mammogram 2002 COVID-19 Vaccine ( season) 2025 06/14/2022, 04/28/2021, 10/04/2020, Additional history exists Influenza Vaccine (#1) 2025 , 03/10/2021, 02/15/2021, Additional history exists DTaP/Tdap/Td [...] patient's age to complete this topic Meningococcal B Vaccine Aged Out No l onger eligible based on patient's age to complete [...]
[2025-02-22 14:39] LABS: Alanine Aminotransferase 22 U/L (0-31); Albumin Level 4.3 g/dL (3.5-5.0); Alkaline Phosphatase 66 U/L (39-117); Anion Gap 9 (12-20); Aspartate Amino Transferase 28 U/L (5-31); Blood Urea Nitrogen 22 mg/dL (9-16); Calcium 9.1 mg/dL (8.4-10.2); Carbon Dioxide 27 mmol/L (22-29); Chloride 109 mmol/L (96-108); Cholesterol 190 mg/dL (<200); Estimated Glomerular Filt Rate > 60; HDL Cholesterol 50 mg/dL (>40); Potassium 3.9 mmol/L (3.3-5.1); Sodium 141 mmol/L (135-145); Total Protein 7.3 g/dL (6.5-8.0); Triglycerides 146 mg/dL (<150)
[2025-02-22 14:55] LABS: Thyroid Stimulating Hormone 1.85 uIU/mL (0.32-4.0)
== END 2025-02-22 08:16 | disposition home or self-care (01) ==
LOC: HO.CHCLDS 08:15
PROVIDERS: Visit Provider Internal Medicine
DX: E89.0 Postprocedural hypothyroidism (principal); R07.89 Other chest pain; E78.00 Pure hypercholesterolemia, unspecified; Z68.33 Body mass index [BMI] 33.0-33.9, adult
CPT/HCPCS: 36415; 80053; 80061; 84443